=== PATIENT | female | born 1990 | race Caucasian/White ===

== ENCOUNTER 2021-11-15 09:28 | Emergency (ER) | payer OTHER, SELFPAY ==
[2021-11-15 09:47] VITALS: BP 111/61; PULSE 92; RESP 18; TEMP 36.2; O2SAT 96; BMI 39.0
--- NOTE | 2021-11-15 09:53 | HMH.EDUTC ---
[facility] [place] Disposition Clinical Impression: Influenza Disposition: Home, Self-Care Condition on Discharge: Good Instructions: How to Avoid a Cold or Flu, Influenza, Oseltamivir Additional Instructions: ? Start Tamiflu today if you are going to take it. Discussed risk and possible benefits. ? Lots of rest ? Increase Fluids water, Gatorade, powerade, pedialyte,if /toddler/child ? Alternate Tylenol and / or ibuprofen as discussed for fever, aches, chills Follow up IMMEDIATELY with your family doctor for new or worsening Symptoms OR no noticeable improvement over the next 48-72 hours, 911 for difficulty or breathing ? You or your child area contagious until no fever, aches, chills for 24 hours with medication for symptoms ? Help Prevent the spread of influenza: ? Wash your hands often. Use soap and water. Wash your hands after you use the bathroom, change a child's diapers, or sneeze. Wash your hands before you prepare or eat food. Use gel hand cleanser that has 60% alcohol, when soap and water are not available. Do not touch your eyes, nose, or mouth unless you have washed your hands first. ? Cover your mouth when you sneeze or cough. Cough into a tissue or the bend of your arm. If you use a tissue, throw it away immediately and wash your hands. ? Clean shared items with a germ-killing mercury cell cleaner. Clean table surfaces, doorknobs, and light switches. Do not share towels, silverware, and dishes with people who are sick. Wash bed sheets, towels, silverware, and dishes with soap and water. ? Wear a mask over your mouth and nose if you are sick. The face mask may help protect others from becoming infected with the flu. Wear the mask when in common areas of your home or if you seek care with a healthcare provider. ? Stay away from others if you are sick. Stay at home until 24 hours after your fever and symptoms are gone. Prescriptions: Brompheniramine/Pseudoephed/Dm [Bromfed Dm Cough Syrup] 5 - 10 ml PO Q46H PRN #200 ml PRN Reason: Cough [facility]: [facility] Oseltamivir Phosphate [Tamiflu 75mg Capsule] 75 mg PO BID #10 cap Transmission Status: Pending to [facility] Referrals: Provider,Referral, [Primary Care Provider] - As needed Forms: Work/School Release Time of Disposition: 10:19 Medical Decision Making - Harlan Inquiry Pt receiving controlled substance: No Harlan was queried for this patient: No Vital Signs: 11/15/21 09:47 Temperature 97.2 F L Temperature Source Oral Pulse Rate [Right Brachial] 92 H Respiratory Rate 18 Blood Pressure [Right Arm] 111/61 Blood Pressure Mean [Right Arm] 77 Blood Pressure Source [Right Arm] Automatic Cuff Blood Pressure Position [Right Arm] Sitting 02 Sat by Pulse Oximetry 96 - Lab Data Lab results reviewed: Yes: I reviewed the patient's lab results. Lab Results 11/15/21 09:45: Influenza Type A Ag Positive A, Influenza Type B Ag Negative [facility] [place] HPI - General Stated complaint: sore throat, cough Time Seen by Provider: 11/15/21 09:53 Mode of Arrival: Ambulatory Source of Information: Patient Limitations: No Limitations Description of Symptoms (Recalled from Triage Doc. by RN): Patient complains of cough, body aches that started yesterday. HEENT Symptoms (Recalled from RN notes): No Resp Symptoms (Recalled from RN notes): Yes Skin Symptoms (Recalled from RN notes): No MS Symptoms (Recalled from RN notes): No Functional Status (Recalled from RN notes): wnl - History of Present Illness Provider Complaint: Patient states that she has been having body aches, chills, cough and nasal congestion State that she was recently exposed to someone that had the flu States that she thinks she may have it now too - Related Data Previous Rx's Medication Instructions Recorded Brompheniramine/Pseudoephed/Dm 5 - 10 ml PO Q46H PRN #200 ml 11/15/21 [Bromfed Dm Cough Syrup] Oseltamivir Phosphate [Tamiflu 75 mg PO BID #10 cap 11/15/21 75mg Ca
[2021-11-15 10:03] LABS: UTC Influenza A Antigen Positive (Negative)
[2021-11-15 10:04] LABS: UTC Influenza B Antigen Negative (Negative)
[2021-11-15 10:33] VITALS: BP 111/61; PULSE 92; RESP 18; TEMP 36.2; O2SAT 96
== END 2021-11-15 10:34 | disposition home or self-care (01) ==
PROVIDERS: Emergency Provider Nurse Practitioner
DX: J10.1 Influenza due to other identified influenza virus with other respiratory manifestations (principal)
CPT/HCPCS: 87804; 99212; G0463

== ENCOUNTER 2024-11-13 12:21 | Emergency (ER) | payer OTHER, SELFPAY ==
[2024-11-13] MEDS: ACETAMINOPHEN 500MG TAB 1000 MG PO (12:40)
[2024-11-13 12:46] VITALS: BP 105/70; PULSE 95; RESP 14; TEMP 36.8; O2SAT 96; BMI 35.9
[2024-11-13 12:51] LABS: Microscopic, Urine URINE MICROSCOPIC (MICROSCOPIC)
[2024-11-13 13:02] LABS: Urine Pregnancy, HCG Qual. Negative (Negative)
--- NOTE | 2024-11-13 13:04 | ED_ITS ---
<Statement entered by Julianna Rodriguez DO - 11/13/24 15:41> I was consulted by the MOSHE, and we discussed the complexity of the problems being addressed. I approved the treatment and management plan for this patient's care in the emergency department, thus performing a substantive portion of the medical decision making. I signed out care of the patient to oncoming provider, Dr. Sutton, at my departure at 1500. Julianna Rodriguez DO Discharge Plan Disposition Patient Disposition: Home, Self-Care Condition: Good Prescriptions Prescriptions: No Action oseltamivir 75 MG capsule 75 mg PO BID Qty: 10 0RF [id number] 118 ML syrup 5 - 10 ml PO Q46H PRN (Reason: Cough) Qty: 200 0RF Referrals Follow up/Referrals: Tg Murray DO [Staff Physician] - See instructions Provider,MD Rommel [Primary Care Provider] - See instructions Activity Restrictions/Add. Instructions Additional Instructions/Restrictions: Today your evaluated in the emergency department. Your lab work is overall unremarkable. You do have blood in your urine, your CT of your abdomen and pelvis is remarkable for a ovarian cyst. Please call OB Friday morning to schedule follow-up appointment. Take acetaminophen and ibuprofen [id number] as directed. Please return to the emergency department for any worsening of your condition. Clinical Impressions Clinical Impression: Abdominal pain Qualifiers: Abdominal location: generalized Qualified Code(s): R10.84 - Generalized abdominal pain Instructions Patient Instructions: DI for Acute Abdominal Pain Print Language Print Language: Guatemalan Discharge ED Provider: Evert Sutton General Adult HPI <Jessica Mora APRN - Last Filed: 11/13/24 20:20> General Chief complaint: Abdominal Pain Stated complaint: abd pain, vaginal spotting Time Seen by Provider: 11/13/24 12:23 Mode of Arrival: Ambulatory Source of Information: Patient Description of Symptoms (Recalled from ER Triage Doc. by RN): patient states lastnitgh she began having lower abdominal cramping and lower back pain she also reports blood in her urine. she went to urgent care today in [place] and was gave 650 mg PO tylenol at 1100 for a fever. History of Present Illness HPI narrative: Patient is a 34-year-old female with no significant PMHx who presents to the ED for 1 day of intermittent, lower abdominal pain that she describes as cramping and fever. She was evaluated at the [facility] earlier today and advised to come to the ED because she had blood in her urine. Related Data Previous Rx's ?Medication ?Instructions ?Recorded [id number] 5 - 10 ml PO Q46H PRN Cough #200 mL 11/15/21 2 mg-30 mg-10 mg/5 mL oral syrup oseltamivir 75 mg capsule 75 mg PO BID #10 caps 11/15/21 Allergies Allergy/AdvReac Type Severity Reaction Status Date / Time No Known Allergies Allergy Verified 11/13/24 13:01 [facility] <Jessica Mora APRN - Last Filed: 11/13/24 20:20> [facility] Disclaimer: The information contained in this section may have been updated after the patient was seen, as this information can be updated by other users. Social History (Updated 11/13/24 @ 20:20 by Jessica Mora APRN) Smoking Status: Never smoker alcohol intake: never current occupational status: employed Travel in the last 8 weeks: None Have you lived/traveled outside US in past 30 days?: No Contact w/someone who lives/traveled outside US past 30 days?: No Exposure to someone with infectious disease in past 14 days?: No Do you have a fever (greater than 100.4 F or 38 C)?: No Have you tested positive for COVID-19: No Exposed to someone with COVID-19 in past 14 days?: No Do you have a sore throat?: No Do you have a cough?: No Do you have any weakness?: No Do you have any diarrhea?: No Are you experiencing any unusual bleeding?: Yes Do you have any muscle aches/pain?: No Do you have any abdominal pain?: Yes Are you experiencing loss of taste or smell?: No <Jessica Mora APRN - Last Filed: 11/13/24 20:20> ROS Obtained: Yes Systems reviewed as appropriate & no additional complaints except as documented Physical Exam <Jessica Mora APRN - Last Filed: 11/13/24 20:20> General General appearance: alert and in no apparent distress Head Head exam: atraumatic and normocephalic Eye Eye exam: Present normal appearance and PERRL ENT ENT exam: Present normal exam Neck Neck exam: Present normal inspection Chest Chest inspection: Present normal inspection and symmetric chest wall rise; Absent tenderness Respiratory Respiratory exam: Present normal lung sounds bilaterally Cardiovascular Cardiovascular exam: Present regular rate Abdominal Exam Abdominal exam: Present soft and normal bowel sounds; Absent tenderness Extremities Exam Extremities exam: Present normal inspection and full ROM Back Exam Back exam: Present normal inspection and full ROM Neurological Exam Neurological exam: Present alert and oriented X3 Psychiatric Psychiatric exam: Present normal affect and normal mood Skin Skin exam: Present warm and dry Medical Decision Making <Jessica Mora APRN - Last Filed: 11/13/24 20:20> Medical Records Screening: Per USPSTF and CDC recommendations, given the prevalence of disease in our region, it is our hospital?s policy to screen for HIV and viral Hepatitis for all patients aged 18 and over and those with ongoing risk factors. Harlan Inquiry Pt receiving controlled substance: No Harlan was queried for this patient: No Vital Signs: 11/13/24 12:46 11/13/24 14:20 11/13/24 16:07 Temperature 98.2 F 98.4 F Temperature Source Oral Pulse Rate 81 89 Pulse Rate [Right] 95 H Respiratory Rate 14 14 16 Blood Pressure 114/70 129/69 Blood Pressure [Left Arm] 105/70 L Blood Pressure Mean [Left Arm] 81 Blood Pressure Source Automatic Cuff Blood Pressure Position Sitting Blood Pressure Position [Left Arm] Sitting 02 Sat by Pulse Oximetry 96 96 Oxygen Delivery Method Room Air Room Air Room Air Lab Data Lab Results 11/13/24 12:29: Urine Color Yellow, Urine Appearance Clear, Urine pH 5.5, Ur Specific Elton 1.035 H, Urine Protein Trace A, Urine Glucose (UA) Negative, Urine Ketones Trace, Urine Blood 2+ A, Urine Nitrate Negative, Urine Bilirubin Negative, Urine Urobilinogen 0.2, Ur Leukocyte Esterase Negative, Urine RBC 5- 10, Urine WBC None, Ur Squamous Epith Cells 3-5, Urine Bacteria Trace, Urine HCG, Qual Negative 11/13/24 12:41: WBC 9.2, RBC 4.57, Hgb 13.1, Hct 38.5, MCV 84.2, MCH 28.7, MCHC 34.0, RDW 12.8, Plt Count 228, MPV 10.5 H, Neut % (Auto) 82.3 H, Lymph % (Auto) 12.3, [place] % (Auto) 4.8, Eos % (Auto) 0.1, Baso % (Auto) 0.4, Neut # (Auto) 7.6, Lymph # (Auto) 1.1, [place] # (Auto) 0.4, Eos # (Auto) 0.0, Baso # (Auto) 0.0, Sodium 137, Potassium 3.4 L, Chloride 105, Carbon Dioxide 25, Anion Gap 10.4, BUN 9, Creatinine 0.70, Estimated Creat Clear 142, Estimated GFR 95, Est GFR ( Amer) 115, Glucose 104 H, Calcium 8.7, Total Bilirubin 0.5, AST 36, ALT 32, Alkaline Phosphatase 80, Total Protein 7.4, Albumin 4.6, Globulin 2.8, Albumin/Globulin Ratio 1.6, HCV Ab RAHEEM w/Rflx PCR Qn Negative, HIV Ag/Ab Combo Qual Negative 11/13/24 12:41 11/13/24 12:41 Orders (Tests/Meds): ED MEDICATIONS Discontinued Medications Generic Name Dose Route Start Last Admin Trade Name Freq PRN Reason Stop Dose Admin Acetaminophen 1,000 mg 11/13/24 12:34 11/13/24 12:40 Acetaminophen 500mg Tab PO 11/13/24 12:35 1,000 mg ONCE ONE Administration Diphenhydramine HCl 25 mg 11/13/24 14:37 11/13/24 14:46 Diphenhydramine 50mg/Ml Vial IV 11/13/24 14:38 25 mg ONCE ONE Administration Iopamidol 75 ml 11/13/24 14:29 11/13/24 14:30 Iopamidol-370 (76%);100ml Bottle IV 11/13/24 14:30 75 ml ONCE ONE Administration Morphine Sulfate 4 mg 11/13/24 14:04 11/13/24 14:08 Morphine 4mg/Ml Syringe IV 11/13/24 14:05 4 mg ONCE ONE Administration Ondansetron HCl 4 mg 11/13/24 14:04 11/13/24 14:08 Ondansetron 4mg/2ml Vial IV 11/13/24 14:05 4 mg ONCE ONE Administration Sodium Chloride 10 ml 11/13/24 14:29 11/13/24 14:30 Sodium Chloride 0.9% 10ml Syr (Rad Only) IV 12/13/24 14:28 10 ml NEEDED PRN Administration Maintain IV Site ORDERS Category Date Time Status CT abdomen pelvis w con Stat Cat Scan 11/13/24 13:50 Completed CBC w/Auto Diff [Complete Blood Count Auto Diff] Stat Lab 11/13/24 12:41 Completed CMP [Comprehensive Metabolic Panel] Stat Lab 11/13/24 12:41 Completed HIV Combo Stat Lab 11/13/24 12:41 Completed Hepatitis C Ab Qual. W/ RFX Stat Lab 11/13/24 12:41 Completed Urinalysis and Microscopic Stat Lab 11/13/24 12:29 Completed Urine , HCG Qual. Stat Lab 11/13/24 12:29 Completed Medical Decision Narrative: In summary, patient is a 34-year-old female with no significant PMHx who presents to the ED for 1 day of intermittent, lower abdominal pain that she describes as cramping and fever. She was evaluated at the [facility] earlier today and advised to come to the ED because she had blood in her urine. Patient states that upon arrival she is not having any pain at this time. Says she has intermittent bilateral flank pain. She took acetaminophen prior to arrival. Upon initial exam, patient is alert, oriented and cooperative. Patient is hemodynamically stable. Physical exam unremarkable. Denies headache, visual changes, posterior neck pain, chest pain, shortness of breath, nausea, vomiting, diarrhea. Differential diagnosis includes UTI, sepsis, pyelonephritis, infectious process, STD, , ectopic , among others. Initial workup will be conducted with hematologic labs and urinalysis. Patient symptomatically managed with morphine and Zofran once her pain started again. Initial workup reviewed by me. CBC unremarkable for any leukocytosis, stable H&H. CMP remarkable for 3.4 potassium. Urinalysis remarkable for elevated specific gravity, trace protein, 2+ blood. Negative nitrite. Negative leuk esterase. test negative. CT of the abdomen pelvis remarkable for a complex multiloculated cystic lesion on the left adnexa measuring 6.5 x 5.3. Contains coarse calcification. Discussed with patient that she will need to follow-up with OB Friday. We discussed taking acetaminophen and ibuprofen [id number] for symptomatic relief. Discussed ovarian cyst. Discussed that she may need a transvaginal ultrasound. Advised her to return to the ED for worsening of her condition. <Evert Sutton MD - Last Filed: 11/13/24 20:33> Vital Signs: 11/13/24 12:46 11/13/24 14:20 11/13/24 16:07 Temperature 98.2 F 98.4 F Temperature Source Oral Pulse Rate 81 89 Pulse Rate [Right] 95 H Respiratory Rate 14 14 16 Blood Pressure 114/70 129/69 Blood Pressure [Left Arm] 105/70 L Blood Pressure Mean [Left Arm] 81 Blood Pressure Source Automatic Cuff Blood Pressure Position Sitting Blood Pressure Position [Left Arm] Sitting 02 Sat by Pulse Oximetry 96 96 Oxygen Delivery Method Room Air Room Air Room Air Lab Data Lab Results 11/13/24 12:29: Urine Color Yellow, Urine Appearance Clear, Urine pH 5.5, Ur Specific Elton 1.035 H, Urine Protein Trace A, Urine Glucose (UA) Negative, Urine Ketones Trace, Urine Blood 2+ A, Urine Nitrate Negative, Urine Bilirubin Negative, Urine Urobilinogen 0.2, Ur Leukocyte Esterase Negative, Urine RBC 5- 10, Urine WBC None, Ur Squamous Epith Cells 3-5, Urine Bacteria Trace, Urine HCG, Qual Negative 11/13/24 12:41: WBC 9.2, RBC 4.57, Hgb 13.1, Hct 38.5, MCV 84.2, MCH 28.7, MCHC 34.0, RDW 12.8, Plt Count 228, MPV 10.5 H, Neut % (Auto) 82.3 H, Lymph % (Auto) 12.3, [place] % (Auto) 4.8, Eos % (Auto) 0.1, Baso % (Auto) 0.4, Neut # (Auto) 7.6, Lymph # (Auto) 1.1, [place] # (Auto) 0.4, Eos # (Auto) 0.0, Baso # (Auto) 0.0, Sodium 137, Potassium 3.4 L, Chloride 105, Carbon Dioxide 25, Anion Gap 10.4, BUN 9, Creatinine 0.70, Estimated Creat Clear 142, Estimated GFR 95, Est GFR ( Amer) 115, Glucose 104 H, Calcium 8.7, Total Bilirubin 0.5, AST 36, ALT 32, Alkaline Phosphatase 80, Total Protein 7.4, Albumin 4.6, Globulin 2.8, Albumin/Globulin Ratio 1.6, HCV Ab RAHEEM w/Rflx PCR Qn Negative, HIV Ag/Ab Combo Qual Negative Orders (Tests/Meds): ED MEDICATIONS Discontinued Medications Generic Name Dose Route Start Last Admin Trade Name Israelq PRN Reason Stop Dose Admin Acetaminophen 1,000 mg 11/13/24 12:34 11/13/24 12:40 Acetaminophen 500mg Tab PO 11/13/24 12:35 1,000 mg ONCE ONE Administration Diphenhydramine HCl 25 mg 11/13/24 14:37 11/13/24 14:46 Diphenhydramine 50mg/Ml Vial IV 11/13/24 14:38 25 mg ONCE ONE Administration Iopamidol 75 ml 11/13/24 14:29 11/13/24 14:30 Iopamidol-370 (76%);100ml Bottle IV 11/13/24 14:30 75 ml ONCE ONE Administration Morphine Sulfate 4 mg 11/13/24 14:04 11/13/24 14:08 Morphine 4mg/Ml Syringe IV 11/13/24 14:05 4 mg ONCE ONE Administration Ondansetron HCl 4 mg 11/13/24 14:04 11/13/24 14:08 Ondansetron 4mg/2ml Vial IV 11/13/24 14:05 4 mg ONCE ONE Administration Sodium Chloride 10 ml 11/13/24 14:29 11/13/24 14:30 Sodium Chloride 0.9% 10ml Syr (Rad Only) IV 12/13/24 14:28 10 ml NEEDED PRN Administration Maintain IV Site ORDERS Category Date Time Status CT abdomen pelvis w con Stat Cat Scan 11/13/24 13:50 Completed CBC w/Auto Diff [Complete Blood Count Auto Diff] Stat Lab 11/13/24 12:41 Completed CMP [Comprehensive Metabolic Panel] Stat Lab 11/13/24 12:41 Completed HIV Combo Stat Lab 11/13/24 12:41 Completed Hepatitis C Ab Qual. W/ RFX Stat Lab 11/13/24 12:41 Completed Urinalysis and Microscopic Stat Lab 11/13/24 12:29 Completed Urine , HCG Qual. Stat Lab 11/13/24 12:29 Completed Medical Decision Narrative: In summary, patient is a 34-year-old female with no significant PMHx who presents to the ED for 1 day of intermittent, lower abdominal pain that she describes as cramping and fever. She was evaluated at the [facility] earlier today and advised to come to the ED because she had blood in her urine. Patient states that upon arrival she is not having any pain at this time. Says she has intermittent bilateral flank pain. She took acetaminophen prior to arrival. Upon initial exam, patient is alert, oriented and cooperative. Patient is hemodynamically stable. Physical exam unremarkable. Denies headache, visual changes, posterior neck pain, chest pain, shortness of breath, nausea, vomiting, diarrhea. Differential diagnosis includes UTI, sepsis, pyelonephritis, infectious process, STD, , ectopic , among others. Initial workup will be conducted with hematologic labs and urinalysis. Patient symptomatically managed with morphine and Zofran once her pain started again. Initial workup reviewed by me. CBC unremarkable for any leukocytosis, stable H&H. CMP remarkable for 3.4 potassium. Urinalysis remarkable for elevated specific gravity, trace protein, 2+ blood. Negative nitrite. Negative leuk esterase. test negative. CT of the abdomen pelvis remarkable for a complex multiloculated cystic lesion on the left adnexa measuring 6.5 x 5.3. Contains coarse calcification. Discussed with patient that she will need to follow-up with OB Friday. We discussed taking acetaminophen and ibuprofen [id number] for symptomatic relief. Discussed ovarian cyst. Discussed that she may need a transvaginal ultrasound. Advised her to return to the ED for worsening of her condition. I was consulted by the MOSHE, and we discussed the complexity of the problems being addressed. I approved the treatment and management plan for this patient's care in the Emergency Department, thus performing a substantive portion of the medical decision making. Evert Sutton MD Critical Care <Jessica Mora APRN - Last Filed: 11/13/24 20:20> Critical Care Time Critical Care Time: No
[2024-11-13 13:18] LABS: Albumin Level 4.6 g/dl (3.5-5.0); Chloride 105 mmol/L (98-107); Potassium 3.4 mmoL/L (3.5-5.1); Sodium 137 mmol/L (136-145)
[2024-11-13 13:20] LABS: Basophils % 0.4 % (0.1-2.0); Eosinophils % 0.1 % (0.1-12.0); Hematocrit 38.5 % (37.0-47.0); Hemoglobin 13.1 g/dL (12.2-16.2); Lymphocytes # 1.1 K/mm3 (0.7-4.5); Lymphocytes % 12.3 % (10-50); Mean Corpuscular Hemoglobin 28.7 pg (27.0-31.2); Mean Corpuscular Volume 84.2 fl (81-99); Mean Platelet Volume 10.5 fl (7.4-10.4); Monocytes # 0.4 K/mm3 (0.1-1.0); Monocytes % 4.8 % (1.7-9.3); Neutrophils # 7.6 K/mm3 (1.8-7.8); Neutrophils % 82.3 % (37.0-80.0); Platelet Count 228 K/mm3 (142-424); Red Blood Count 4.57 M/mm3 (4.20-5.40); Red Cell Distribution Width 12.8 % (11.5-17.5); White Blood Count 9.2 K/mm3 (4.8-10.8)
[2024-11-13 13:21] LABS: Alanine Aminotransferase 32 U/L (12-78); Albumin/Globulin Ratio 1.6 (1.1-1.8); Alkaline Phosphatase 80 U/L (38-126); Anion Gap 10.4 mEq/L (5-15); Aspartate Amino Transferase 36 U/L (14-36); Bilirubin,Total 0.5 mg/dl (0.2-1.3); Blood Urea Nitrogen 9 mg/dl (7-17); Carbon Dioxide 25 mmol/L (22.0-30.0); Creatinine Clearance Estimated 142 mL/min (50-200); Estimated Glomerular Filt Rate 95 ml/min (>60); GFR (African American) 115 ML/MIN (>60); Globulin 2.8 g/dL (1.3-3.2); Total Protein,Serum 7.4 g/dl (6.3-8.2)
[2024-11-13 13:22] LABS: Calcium 8.7 mg/dl (8.4-10.2); Glucose 104 mg/dl (74-100)
[2024-11-13 13:30] LABS: Appearance,Urine Clear (Clear); Color,Urine Yellow (Yellow); PH,Urine 5.5 (5.0-8.5)
[2024-11-13 13:31] LABS: Specific Gravity, Urine 1.035 (1.005-1.030)
[2024-11-13 13:32] LABS: Bilirubin,Urine Negative (Negative); Blood, Urine 2+ (Negative); Glucose,Urine (UA) Negative (Negative); Ketones,Urine Trace (Negative); Leukocyte Esterase,Urine Negative (Negative); Nitrate,Urine Negative (Negative); Protein,Urine Trace (Negative); Urobilinogen,Urine 0.2 EU/dl (0.2)
[2024-11-13 13:33] LABS: Bacteria,Urine Trace /lpf
--- NOTE | 2024-11-13 13:50 | CT_ITS ---
PROCEDURE INFORMATION: Exam: CT Abdomen And Pelvis With Contrast Exam date and time: 11/13/2024 2:27 PM Age: 34 years old Clinical indication: Other: Abd pain lower TECHNIQUE: Imaging protocol: Computed tomography of the abdomen and pelvis with contrast. Radiation optimization: All CT scans at this facility use at least one of these dose optimization techniques: automated exposure control; mA and/or kV adjustment per patient size (includes targeted exams where dose is matched to clinical indication); or iterative reconstruction. Contrast material: ISOVUE; Contrast volume: 75 ml; Contrast route: IV; COMPARISON: No relevant prior studies available. FINDINGS: Liver: Normal. No mass. Gallbladder and biliary ducts: Normal. No calcified stones. No ductal dilation. Pancreas: Normal. No ductal dilation. Spleen: Normal. No splenomegaly. Adrenal glands: Normal. No mass. Kidneys and ureters: Normal. No hydronephrosis. Stomach and bowel: Unremarkable. No obstruction. No mucosal thickening. Appendix: Appendix normal. Intraperitoneal space: Unremarkable. No free air. No significant fluid collection. Vasculature: Unremarkable. No abdominal aortic aneurysm. Lymph nodes: Unremarkable. No enlarged lymph nodes. Urinary bladder: Unremarkable as visualized. Reproductive: Complex multiloculated cystic lesion left adnexa measuring 6.5 x 5.3 cm. Contains coarse calcification. Additional workup necessary. IUD in the uterus. Bones/joints: Unremarkable. No acute fracture. Soft tissues: Unremarkable. IMPRESSION: 1. Appendix normal. 2. Complex multiloculated cystic lesion left adnexa measuring 6.5 x 5.3 cm. Contains coarse calcification. Additional workup necessary.
[2024-11-13 14:03] LABS: HIV Combo NEGATIVE (Negative)
[2024-11-13] MEDS: MORPHINE 4MG/ML SYRINGE 4 MG IV (14:08)
[2024-11-13] MEDS: ONDANSETRON 4MG/2ML VIAL 4 MG IV (14:08)
[2024-11-13 14:10] LABS: Hepatitis C Ab Qual. W/ RFX NEGATIVE (Negative)
[2024-11-13 14:20] VITALS: BP 114/70; PULSE 81; RESP 14; O2SAT 96
--- NOTE | 2024-11-13 14:24 | PC.NURSE ---
pt gone to ct via walking
[2024-11-13] MEDS: SODIUM CHLORIDE 0.9% 10ML SYR (RAD ONLY) 10 ML IV (14:30)
[2024-11-13] MEDS: IOPAMIDOL-370 (76%);100ML BOTTLE 75 ML IV (14:30)
[2024-11-13] MEDS: diphenhydrAMINE 50MG/ML VIAL 25 MG IV (14:46)
[2024-11-13 16:07] VITALS: BP 129/69; PULSE 89; RESP 16; TEMP 36.9; O2SAT 100
== END 2024-11-13 16:07 | disposition home or self-care (01) ==
PROVIDERS: Nurse Practitioner; Emergency Provider Emergency Medicine
DX: R10.30 Lower abdominal pain, unspecified (principal); M54.50 Low back pain, unspecified; R31.9 Hematuria, unspecified; R50.9 Fever, unspecified; N93.9 Abnormal uterine and vaginal bleeding, unspecified
CPT/HCPCS: 74177; 80053; 81001; 81025; 85025; 86803; 87389; 96374; 96375; 99285; J1200; J2270; J2405; Q9967

== ENCOUNTER 2024-11-24 07:57 | Outpatient (CLI) | payer OTHER, SELFPAY ==
--- NOTE | 2024-11-24 08:30 | US_ITS ---
PROCEDURE: US TRANSVAGINAL CLINICAL INDICATION: ovarian cyst f/u COMPARISON: CT CT ABDOMEN PELVIS W CON from 11/13/2024 FINDINGS: Transvaginal and transabdominal sonographic images of the pelvis were obtained. UTERUS: 8.8 cm x 4.9 cmx 4.3cm anteverted with a combined endometrial thickness of 4.6mm. There is an IUD within the uterine cavity that appears to be in the correct position. LEFT OVARY: Not visualized Within the left adnexa there is a multi-cystic structure measuring 5.5 cm x 6.4 cm x 5.6 cm. It appears to be a simple cyst and within the cyst there are 2 smaller cysts. There are no solid components or excrescences on the cyst wall. RIGHT OVARY: 2.0cmx 1.5 cmx1.4cm with a volume of 2.2ml. Doppler flow to right ovary is seen seen. There is no fluid in the cul-de-sac. IMPRESSION: 1. Anteverted uterus normal in shape and size. The endometrium is thin. Within the uterine cavity there is an IUD that appears to be in the correct position. 2. The right ovary is seen and appears normal. 3. The left ovary is not visualized but within the left adnexa there is multi-cystic structure measuring 6.4 cm in size. There appears to be 2 smaller cysts within the larger cyst. It has thin plaza, no excrescences and no solid components. There is no color flow. Suggest follow-up in 3-6 months. 4. There is no fluid in the cul-de-sac. Dictated by: Dieudonne Locke MD 11/24/2024 11:09 Dieudonne Locke MD in OV 11/24/2024 11:10
== END 2024-11-24 23:59 | disposition home or self-care (01) ==
LOC: RAD 07:58
PROVIDERS: PCP Obstetrics & Gynecology; Visit Provider Obstetrics & Gynecology
DX: R10.2 Pelvic and perineal pain (principal); N83.202 Unspecified ovarian cyst, left side
CPT/HCPCS: 76830